=== PATIENT | male | born 2000 | race Caucasian/White ===

== ENCOUNTER 2024-04-26 07:58 | Emergency (ER) | payer BC ==
[~2024-04-26] VITALS: Ht 177.8 cm; Wt 77.3 kg
[2024-04-26 08:09] VITALS: BP 146/83; TEMP 98.7
[2024-04-26 09:32] VITALS: PULSE 67; RESP 16; O2SAT 98
== END 2024-04-26 09:33 | disposition home or self-care (01) ==
LOC: ER 07:58
DX: R59.9 Enlarged lymph nodes, unspecified (principal)
CPT/HCPCS: 99281